=== PATIENT | female | born 1945 | race African-American/Black ===

== ENCOUNTER 2021-02-26 22:00 | Inpatient (IN) | payer MEDICARE, OTHER ==
[~2021-02-26] VITALS: Ht 170.2 cm; Wt 108.0 kg
[2021-02-26 22:53] LABS: BASOPHILS % 0.3 % (0.0-1.0); EOSINOPHILS # (AUTO) 0.2 (0.0-0.4); EOSINOPHILS % 1.1 % (0.0-6.0); LYMPHOCYTES # (AUTO) 3.3 (1.0-3.2); LYMPHOCYTES % 21.6 % (18.0-39.1); MEAN CORPUSCULAR HEMOGLOBIN 36.1 pg (28-32); MEAN CORPUSCULAR HGB CONC 31.3 g/dL (31-35); MEAN CORPUSCULAR VOLUME 115.3 fL (81-99); MONOCYTES # (AUTO) 2.7 (0.2-0.8); MONOCYTES % 17.7 % (4.4-11.3); NEUTROPHILS % 58.8 % (38.7-80.0); PLATELET COUNT 268 x10e3/uL (140-360); RED BLOOD COUNT 1.83 x10e6/uL (3.6-5.1); RED CELL DISTRIBUTION WIDTH 16.4 % (11.7-14.4)
[2021-02-26 22:55] LABS: HEMATOCRIT 21.1 % (34.2-44.1)
[2021-02-26 22:56] LABS: HEMOGLOBIN 6.6 g/dL (12.0-16.0)
[2021-02-26 23:09] LABS: ALBUMIN 3.6 g/dL (3.5-5.0); ALBUMIN/GLOBULIN RATIO 1.1 (0.8-2.0); CALCIUM 8.9 mg/dL (8.4-10.2); CREATININE, SERUM 1.36 mg/dL (0.57-1.11)
[2021-02-26 23:15] LABS: CREATINE KINASE MB 0.7 ng/mL (0-5.0)
[2021-02-26] MEDS ORDERED: SODIUM CHLORIDE 0.9% 250ML 250 ML IV ONE (23:30)
[2021-02-27] VITALS (8 sets, daily range): BP systolic 144–148; BP diastolic 64–87
[2021-02-27] MEDS ORDERED: ASPIRIN 81 MG CHEW TAB PO ONE (02:30)
[2021-02-27] MEDS ORDERED: ONDANSETRON HCL INJ 2MG/ML 2ML 2 MG/ML VIAL IV PRN (02:30)
[2021-02-27] MEDS ORDERED: ACETAMINOPHEN 325 MG TAB PO STA (03:50)
[2021-02-27] MEDS ORDERED: SODIUM CHLORIDE 0.9% 250ML 250 ML ONE ×2 (03:51→10:25)
[2021-02-27] MEDS ORDERED: ACETAMINOPHEN 325 MG TAB ONE (04:03)
[2021-02-27] MEDS ORDERED: ATORVASTATIN CA20 MG PO (06:04)
[2021-02-27] MEDS ORDERED: METOPROLOL TAR100 MG PO (06:11)
[2021-02-27] MEDS ORDERED: ALBUTEROL SULFATE (06:11)
[2021-02-27] MEDS ORDERED: AMLODIPINE BESY10 MG PO (06:11)
[2021-02-27] MEDS ORDERED: GLIMEPIRIDE2 MG PO (06:11)
[2021-02-27] MEDS ORDERED: LOSARTAN POTAS100 MG PO (06:11)
[2021-02-27] MEDS ORDERED: PANTOPRAZOLE SO40 MG PO (06:11)
[2021-02-27] MEDS ORDERED: METFORMIN HCL500 MG PO (06:11)
[2021-02-27] MEDS ORDERED: FUROSEMIDE40 MG PO (06:11)
[2021-02-27 07:41] LABS: CREATINE KINASE MB 0.6 ng/mL (0-5.0)
[2021-02-27 11:26] LABS: CHOL/HDL RATIO 3.1 (3.0-3.6)
[2021-02-27 11:40] LABS: FERRITIN 19.01 ng/mL (4.63-204.00)
[2021-02-27 15:02] LABS: CREATINE KINASE MB 0.3 ng/mL (0-5.0)
[2021-02-27 15:40] LABS: HEMATOCRIT 24.2 % (34.2-44.1); HEMOGLOBIN 7.7 g/dL (12.0-16.0)
[2021-02-27] MEDS ORDERED: METOPROLOL TARTRATE 50 MG TAB PO SCH (17:00)
[2021-02-27] MEDS ORDERED: SODIUM CHLORIDE 0.9% 250ML 250 ML IV ONE (18:45)
[2021-02-27] MEDS ORDERED: BISACODYL 5 MG TAB EC PO ONE (19:00)
[2021-02-27] MEDS ORDERED: PEG (High)/E-LYTE SOLN 4,000 ML BTL PO ONE (20:00)
[2021-02-27] MEDS: ATORVASTATIN 20 MG TAB PO SCH (20:12)
[2021-02-27 21:07] LABS: INR 0.93; PROTHROMBIN TIME 12.7 seconds (11.9-14.5)
[2021-02-28] VITALS (10 sets, daily range): BP systolic 125–165; BP diastolic 65–80
[2021-02-28] MEDS ORDERED: SODIUM CHLORIDE 0.9% 250ML 250 ML ONE (01:21)
[2021-02-28 05:36] LABS: BASOPHILS # (AUTO) 0.1 (0.0-0.1); BASOPHILS % 0.5 % (0.0-1.0); EOSINOPHILS # (AUTO) 0.2 (0.0-0.4); EOSINOPHILS % 1.2 % (0.0-6.0); HEMATOCRIT 28.1 % (34.2-44.1); LYMPHOCYTES # (AUTO) 3.2 (1.0-3.2); LYMPHOCYTES % 22.2 % (18.0-39.1); MEAN CORPUSCULAR HEMOGLOBIN 32.4 pg (28-32); MEAN CORPUSCULAR VOLUME 101.1 fL (81-99); MONOCYTES % 20.8 % (4.4-11.3); NEUTROPHILS # (AUTO) 7.8 (2.1-6.9); NEUTROPHILS % 54.8 % (38.7-80.0); PLATELET COUNT 222 x10e3/uL (140-360); RED BLOOD COUNT 2.78 x10e6/uL (3.6-5.1); RED CELL DISTRIBUTION WIDTH 22.5 % (11.7-14.4)
[2021-02-28 08:30] LABS: ALBUMIN 3.6 g/dL (3.5-5.0); ALBUMIN/GLOBULIN RATIO 1.2 (0.8-2.0); ANION GAP 14.4 mmol/L (8-16); CALCIUM 9.1 mg/dL (8.4-10.2); CREATININE, SERUM 1.32 mg/dL (0.57-1.11); POTASSIUM 4.4 mmol/L (3.5-5.1)
[2021-02-28] MEDS: METOPROLOL TARTRATE 50 MG TAB PO SCH ×2 (08:54→21:03)
[2021-02-28 09:55] LABS: EOSINOPHILS % (MANUAL) 1 % (0-7); LYMPHOCYTES % (MANUAL) 23 % (19-48); MONOCYTES % (MANUAL) 19 % (3.4-9.0); NEUTROPHILS % (MANUAL) 57 % (40-74)
[2021-02-28 09:56] LABS: PLATELET ESTIMATE ADEQUATE; PLATELET MORPHOLOGY COMMENT NORMAL; RBC MORPHOLOGY COMMENT NORMAL
[2021-02-28] MEDS ORDERED: CITRATE OF MAGNESIA 300ML BOTTLE PO ONE ×2 (10:45→18:30)
[2021-02-28] MEDS ORDERED: PROPOFOL IV EMULSION 10 MG/ML 20 ML VIAL ONE (12:00)
[2021-02-28] MEDS ORDERED: LIDOCAINE HCL 2% LOCAL INJ 5 ML SDV VIAL INJ ONE (12:00)
[2021-02-28] MEDS ORDERED: ONDANSETRON HCL 4 MG ORAL DISINTEGRATING TAB PO PRN (14:15)
[2021-02-28] MEDS ORDERED: BISACODYL 5 MG TAB EC PO ONE (18:30)
[2021-02-28] MEDS: ATORVASTATIN 20 MG TAB PO SCH (21:03)
[2021-03-01] VITALS (8 sets, daily range): BP systolic 129–156; BP diastolic 72–99
[2021-03-01] MEDS: SODIUM CHLORIDE 0.45% 1,000 ML IV SCH ×2 (08:45→11:28)
[2021-03-01] MEDS: METOPROLOL TARTRATE 50 MG TAB PO SCH ×3 (09:00→23:25)
[2021-03-01 13:23] LABS: BASOPHILS # (AUTO) 0.1 (0.0-0.1); BASOPHILS % 0.5 % (0.0-1.0); EOSINOPHILS # (AUTO) 0.1 (0.0-0.4); EOSINOPHILS % 0.9 % (0.0-6.0); HEMATOCRIT 28.6 % (34.2-44.1); HEMOGLOBIN 8.9 g/dL (12.0-16.0); LYMPHOCYTES # (AUTO) 1.7 (1.0-3.2); MEAN CORPUSCULAR HEMOGLOBIN 32.4 pg (28-32); MEAN CORPUSCULAR HGB CONC 31.1 g/dL (31-35); MONOCYTES # (AUTO) 2.2 (0.2-0.8); MONOCYTES % 16.4 % (4.4-11.3); NEUTROPHILS # (AUTO) 9.1 (2.1-6.9); NEUTROPHILS % 68.7 % (38.7-80.0); PLATELET COUNT 214 x10e3/uL (140-360); RED BLOOD COUNT 2.75 x10e6/uL (3.6-5.1); RED CELL DISTRIBUTION WIDTH 21.3 % (11.7-14.4)
[2021-03-01 13:42] LABS: ANION GAP 14.8 mmol/L (8-16); CALCIUM 8.2 mg/dL (8.4-10.2); CREATININE, SERUM 1.24 mg/dL (0.57-1.11); POTASSIUM 3.8 mmol/L (3.5-5.1)
[2021-03-01] MEDS: ATORVASTATIN 20 MG TAB PO SCH (23:23)
[2021-03-02] VITALS (8 sets, daily range): BP systolic 150–189; BP diastolic 69–83
[2021-03-02 08:00] LABS: ANION GAP 13.1 mmol/L (8-16); CALCIUM 8.8 mg/dL (8.4-10.2); CREATININE, SERUM 1.06 mg/dL (0.57-1.11); POTASSIUM 4.1 mmol/L (3.5-5.1)
[2021-03-02] MEDS: METOPROLOL TARTRATE 50 MG TAB PO SCH ×2 (09:13→21:18)
[2021-03-02] MEDS ORDERED: ACETAMINOPHEN 325 MG TAB PO PRN (09:45)
[2021-03-02] MEDS: SODIUM CHLORIDE 0.45% 1,000 ML IV SCH (17:20)
[2021-03-02] MEDS: ATORVASTATIN 20 MG TAB PO SCH (21:17)
[2021-03-02] MEDS: MORPHINE SULFATE INJ 4 MG/ML INJ 1ML IV PRN (21:45)
[2021-03-03] VITALS (8 sets, daily range): BP systolic 135–177; BP diastolic 66–81
[2021-03-03] MEDS: METOPROLOL TARTRATE 50 MG TAB PO SCH ×2 (08:41→21:29)
[2021-03-03] MEDS: SODIUM CHLORIDE 0.45% 1,000 ML IV SCH (10:21)
[2021-03-03] MEDS ORDERED: FERROUS SULFATE 325 MG TAB PO ONE (18:55)
[2021-03-03 19:06] LABS: BASOPHILS # (AUTO) 0.1 (0.0-0.1); BASOPHILS % 0.4 % (0.0-1.0); EOSINOPHILS # (AUTO) 0.2 (0.0-0.4); EOSINOPHILS % 1.1 % (0.0-6.0); HEMATOCRIT 29.5 % (34.2-44.1); HEMOGLOBIN 9.3 g/dL (12.0-16.0); LYMPHOCYTES # (AUTO) 2.5 (1.0-3.2); LYMPHOCYTES % 17.6 % (18.0-39.1); MEAN CORPUSCULAR HEMOGLOBIN 32.6 pg (28-32); MEAN CORPUSCULAR HGB CONC 31.5 g/dL (31-35); MEAN CORPUSCULAR VOLUME 103.5 fL (81-99); MONOCYTES # (AUTO) 2.9 (0.2-0.8); MONOCYTES % 20.3 % (4.4-11.3); NEUTROPHILS # (AUTO) 8.6 (2.1-6.9); NEUTROPHILS % 60.2 % (38.7-80.0); PLATELET COUNT 224 x10e3/uL (140-360); RED BLOOD COUNT 2.85 x10e6/uL (3.6-5.1); RED CELL DISTRIBUTION WIDTH 20.2 % (11.7-14.4)
[2021-03-03] MEDS: ATORVASTATIN 20 MG TAB PO SCH (21:28)
[2021-03-03] MEDS: MORPHINE SULFATE INJ 4 MG/ML INJ 1ML IV PRN (21:34)
[2021-03-04] VITALS: BP 126/63
[2021-03-04] MEDS ORDERED: FERROUS SULFATE 325 MG TAB PO ONE (01:30)
[2021-03-04] MEDS: SODIUM CHLORIDE 0.45% 1,000 ML IV SCH (03:25)
[2021-03-04 04:00] VITALS: BP 131/57
[2021-03-04] MEDS ORDERED: PANTOPRAZOLE SO40 MG PO (07:22)
[2021-03-04] MEDS ORDERED: METAMUCIL FIBE3.4 GM PO (07:22)
[2021-03-04 07:53] VITALS: BP 157/79
[2021-03-04] MEDS: METOPROLOL TARTRATE 50 MG TAB PO SCH (08:11)
[2021-03-04 08:13] VITALS: BP 157/79
[2021-03-04 08:14] VITALS: BP 157/79
[2021-03-04 08:15] VITALS: BP 157/79
[2021-03-04] MEDS ORDERED: ASCORBIC ACID 500 MG TAB PO SCH (09:00)
== END 2021-03-04 10:03 | disposition home or self-care (01) | DRG 378 ==
LOC: ER 22:20 → ERHOLD 02-27 02:22 → MED/SURG 02-27 05:03
PROVIDERS: ADMIT Internal Medicine; ATTEND Internal Medicine
PROC: 30233N1 Transfusion of Nonautologous Red Blood Cells into Peripheral Vein, Percutaneous Approach (ICD-10-PCS; principal; 2021-02-27)
PROC: 0DB78ZX Excision of Stomach, Pylorus, Via Natural or Artificial Opening Endoscopic, Diagnostic (ICD-10-PCS; 2021-03-01)
PROC: 0DB68ZX Excision of Stomach, Via Natural or Artificial Opening Endoscopic, Diagnostic (ICD-10-PCS; 2021-03-01)
PROC: 0DJD8ZZ Inspection of Lower Intestinal Tract, Via Natural or Artificial Opening Endoscopic (ICD-10-PCS; 2021-03-01 08:17)
PROC: 0DB98ZX Excision of Duodenum, Via Natural or Artificial Opening Endoscopic, Diagnostic (ICD-10-PCS; 2021-03-01 08:17)
DX: K29.71 Gastritis, unspecified, with bleeding (principal); N17.9 Acute kidney failure, unspecified; B37.81 Candidal esophagitis; D62 Acute posthemorrhagic anemia; K57.31 Diverticulosis of large intestine without perforation or abscess with bleeding; Z68.37 Body mass index [BMI] 37.0-37.9, adult; E78.5 Hyperlipidemia, unspecified; E11.9 Type 2 diabetes mellitus without complications; Z98.84 Bariatric surgery status; K31.9 Disease of stomach and duodenum, unspecified; K31.89 Other diseases of stomach and duodenum; Z79.4 Long term (current) use of insulin; I25.10 Atherosclerotic heart disease of native coronary artery without angina pectoris; E66.01 Morbid (severe) obesity due to excess calories; I10 Essential (primary) hypertension
CPT/HCPCS: 36415; 43235; 43239; 45378; 71045; 74280; 80048; 80053; 80061; 82270; 82550; 82553; 82607; 82728; 82747; 82948; 83036; 83540; 83880; 84466; 84484; 85014; 85018; 85025; 85045; 85610; 85730; 86850; 86900; 86920; 87106; 87205; 88112; 88300; 88305; 88312; 93005; 93306; 99284; J2001; J2270; J7050; P9016; Q0162; U0002